=== PATIENT | male | born 1985 | race Caucasian/White ===

== ENCOUNTER 2018-10-18 19:53 | Emergency (ER) | payer MEDICAID, OTHER ==
[~2018-10-18] VITALS: Ht 170.2 cm; Wt 61.9 kg
[~2018-10-18 19:53] MED LIST: CLIN-96 PO; CLIN150C8 PO; CYCL-1 PO
[2018-10-18 19:58] VITALS: BP 112/79
[2018-10-18] MEDS ORDERED: AMOX500C2 PO (20:10)
== END 2018-10-18 20:49 | disposition home or self-care (01) ==
LOC: ER 19:53
DX: K08.89 Other specified disorders of teeth and supporting structures (principal); Z79.2 Long term (current) use of antibiotics; Z79.899 Other long term (current) drug therapy
CPT/HCPCS: 99283

== ENCOUNTER 2020-04-05 09:46 | Emergency (ER) | payer MEDICAID ==
[~2020-04-05] VITALS: Ht 170.2 cm; Wt 72.7 kg
[~2020-04-05 09:46] MED LIST changes: -CLIN-96 PO; +CLIN-97 PO
[2020-04-05] MEDS ORDERED: magnesium hydroxide 30ml (MOM) UD suspension PO ONE (09:55)
[2020-04-05] MEDS ORDERED: LORazepam 2 mg/ml vial IM ONE (09:55)
[2020-04-05] MEDS ORDERED: ketorolac trometh inj. 60 MG/2 ML VIAL IM ONE (10:00)
--- NOTE | 2020-04-05 10:01 | NUR ---
WILL CONTACTED WILL SEND OFFICER
--- NOTE | 2020-04-05 10:26 | NUR ---
PT GIVEN IM ATIVAN AND TORADOL ALONG WITH MOM TOPICAL FOR BU
[2020-04-05] MEDS ORDERED: LORazepam 1 MG tablet PO ONE (10:55)
[2020-04-05 11:06] VITALS: BP 145/98
== END 2020-04-05 11:04 | disposition home or self-care (01) ==
LOC: ER 09:47
DX: Z77.098 Contact with and (suspected) exposure to other hazardous, chiefly nonmedicinal, chemicals (principal); R51 Headache; Z79.2 Long term (current) use of antibiotics; Z79.899 Other long term (current) drug therapy
CPT/HCPCS: 96372; 99284; J1885; J2060

== ENCOUNTER 2022-12-04 08:14 | Emergency (ER) | payer MEDICAID ==
[~2022-12-04] VITALS: Ht 170.2 cm; Wt 81.0 kg
[2022-12-04 08:20] VITALS: BP 128/85
[2022-12-04] MEDS ORDERED: AMOX-117 PO (09:50)
[2022-12-04] MEDS ORDERED: TRAM50TA2 PO (09:50)
== END 2022-12-04 10:09 | disposition home or self-care (01) ==
LOC: ER 08:15
DX: K14.0 Glossitis (principal)
CPT/HCPCS: 99283